=== PATIENT | female | born 1950 | race Two or more races ===

== ENCOUNTER 2020-12-08 07:16 | Day surgery (SDC) | payer OTHER, MEDICARE ==
[2020-12-06 15:57] VITALS: BMI 24.8
[2020-12-08] MEDS ORDERED: PROPOFOL 20 ML ONE ×4 (07:52)
[2020-12-08] MEDS ORDERED: LIDOCAINE HCL/PF 2% SDV 5ML VIAL ONE (07:53)
[2020-12-08 09:22] VITALS: TEMP 98.1
[2020-12-08 09:35] VITALS: BP 115/72; PULSE 78
== END 2020-12-08 09:51 | disposition home or self-care (01) ==
LOC: FASU-ENDO 07:16
PROVIDERS: ATTEND Internal Medicine Gastroenterology
PROC: 0DB98ZX Excision of Duodenum, Via Natural or Artificial Opening Endoscopic, Diagnostic (ICD-10-PCS; 2020-12-08)
PROC: 0DB78ZX Excision of Stomach, Pylorus, Via Natural or Artificial Opening Endoscopic, Diagnostic (ICD-10-PCS; 2020-12-08)
PROC: 0DB28ZX Excision of Middle Esophagus, Via Natural or Artificial Opening Endoscopic, Diagnostic (ICD-10-PCS; 2020-12-08)
PROC: 0DBN8ZX Excision of Sigmoid Colon, Via Natural or Artificial Opening Endoscopic, Diagnostic (ICD-10-PCS; principal; 2020-12-08 08:26)
DX: Z12.11 Encounter for screening for malignant neoplasm of colon (principal); Z86.010 Personal history of colon polyps; K57.30 Diverticulosis of large intestine without perforation or abscess without bleeding; K21.00 Gastro-esophageal reflux disease with esophagitis, without bleeding; K29.70 Gastritis, unspecified, without bleeding; D17.5 Benign lipomatous neoplasm of intra-abdominal organs; R12 Heartburn
CPT/HCPCS: 88305-TC; 88342-TC